=== PATIENT | female | born 1950 | race Caucasian/White ===

== ENCOUNTER 2019-09-13 19:42 | Emergency (ER) | payer MEDICARE, OTHER, SELFPAY ==
[2019-09-13 19:45] VITALS: BP 166/101; PULSE 112; RESP 20; TEMP 37.7; O2SAT 93; BMI 27.8
--- NOTE | 2019-09-13 19:52 | EKG12_ITS ---
Test Reason : DYSRHYTHMIA Blood Pressure : / mmHG Vent. Rate : 100 BPM Atrial Rate : 100 BPM P-R Int : 184 ms QRS Dur : 082 ms QT Int : 360 ms P-R-T Axes : 037 009 054 degrees QTc Int : 464 ms Normal sinus rhythm Normal ECG Confirmed by MONICA SERRANO, KENYATTA ([id number]), senior technical editor JOSE FIGUEROA ([id number]) on 09/16/2019 1:51:12 PM Referred By: FARIBA Confirmed By:JANELLE ANDERSON MD
--- NOTE | 2019-09-13 20:00 | ED.DCSUM_ITS ---
History of Present Illness Chief Complaint: Cough Detail of Chief Complaint: Respiratory symptoms with fever Informant: Patient, Significant Other Onset: Today Context: Sudden Onset Timing: Continuous Quality: Raspy cough, temperature 101.4 ?F, shortness of breath Location: Respiratory Current Severity: Mild Maximum Severity: Moderate Worsened by: Exertion Relieved by: Nothing Associated Symptoms: Denies nasal congestion or rhinorrhea positive sore throat Narrative: Patient is a 69-year-old woman who is a non-smoker that presented with respiratory symptoms that started this morning. She was at a [place] conference near [place] this past weekend. She was in contact with individuals who were ill. She denies headache. She denies ocular, visual auditory symptoms. She does complain of aching. She denies GI or symptoms. She states her right ankle is always swollen since surgery 5 months ago. She states she took 2 extra strength Tylenol 2.5 hours prior to presentation. She has no other complaints. Prior similar symptoms: No Recent Illness/Hospitalization: No - Past Medical History (1) Hypertension Status: Chronic Past Medical History - Allergies and Home Meds Allergies/Adverse Reactions: Allergies ibuprofen Adverse Reaction (Verified 09/13/19 19:44) Nausea naproxen [From Aleve] Adverse Reaction (Verified 09/13/19 19:44) Other SPIKED BY BLOOD PRESSURE Primary Care Physician: Pb Capone MD [Primary Care Provider] - Prior records reviewed: Yes Surgical History: noncontributory Lives: Spouse/ Significant Other Smoking Status: Never smoker Alcohol: None Drugs: None Review of Systems General: Reports: Chills, Fever, Malaise. Denies: Subjective, Sweats, Weight loss Eyes: Reports: - - She denies photophobia. Denies: Visual changes - bilaterally, Blurred Vision - bilaterally, Diplopia ENT: Reports: Sore throat, - - She denies neck pain or neck stiffness. Denies: Rhinorrhea Cardiovascular: Reports: Palpitations. Denies: Chest pain Respiratory: Reports: Dyspnea, Cough, Dyspnea on exertion. Denies: Sputum, Orthopnea, Paroxysmal nocturnal dyspnea Gastrointestinal: Denies: Abdominal pain, Nausea, Vomiting, Diarrhea, Melena, Hematochezia Genitourinary: Denies: Dysuria, Hematuria, Frequency Musculoskeletal: Reports: Myalgias. Denies: Arthralgias, Neck pain, Back pain, Swelling, Extremity Pain Skin: Denies: Rash, Wounds Neurological: Reports: Weakness. Denies: Headache, Parasthesia, Numbness, -, - Endocrine: Denies: Polyuria, Polydipsia Hematologic: Denies: Easy bruising, Easy bleeding Allergy: Denies: Uticaria Physical Exam Vital Signs/Narrative: Vital Signs Temp Pulse Resp BP Pulse Ox 09/13/19 19:45 99.9 F H 112 H 20 H 166/101 H 93 Inital Vital Signs reviewed: Yes Cardiovascular: Regular rhythm, No murmurs, Normal S1, Normal S2, Tachycardia Respiratory: Chest nontender, - - Adventitial breath sounds right lower lobe. Egophony left lower lobe.. Negative for: CTA bilaterally Abdomen: Soft, Nontender, Nondistended, Normal bowel sounds Back: Nontender, Normal Inspection Extremities: Nontender, No edema Skin: Normal color, No rash, No Trauma. Negative for: Cyanosis, Diaphoresis, Jaundice Neurological: Alert, Oriented x3, Cranial nerves II-XII grossly intact, Normal Strength, Normal Sensation Psychological: Normal affect, Normal Mood Diagnostic/Tx/Re-eval Chest X-Ray - ED: 2 View, Read by ED Physician, - - View chest x-ray interpreted by me at 2034 reveals normal cardiac silhouette and size. Mediastinum is unremarkable. Lung parenchyma is unremarkable. Osseous structures reveal no acute pathology. There is no evidence of effusion. 09/13/19 20:20 Chest PA and Lateral [RAD] Stat 09/13/19 20:12 Mucosa - Nasopharyngeal Influenza Types A,B Direct FA (ELIOT) - Final Laboratory Results 09/13/19 09/13/19 09/13/19 20:06 20:06 20:06 WBC 6.9 RBC 4.38 Hgb 12.7 Hct 38.7 MCV 88.4 MCH 29.0 MCHC 32.8 RDW Std Deviation 43.4 RDW Coeff of Denita 13.3 Plt Count 216 MPV 9.6 Immature Gran % (Auto) 0.300 Neut % (Auto) 84.5 H Lymph % (Auto) 6.1 L [place] % (Auto) 8.4 Eos % (Auto) 0.6 Baso % (Auto) 0.1 Absolute Neuts (auto) 5.8 Absolute Lymphs (auto) 0.42 L Nucleated RBC % 0 Differential Comment SEE COMMENT Platelet Estimate ADEQUATE RBC Morphology N CHROM Anisocytosis RARE PT 13.1 INR 1.0 APTT 31.4 Sodium 139 Potassium 3.9 Chloride 105 Carbon Dioxide 27.0 Anion Gap 7 BUN 12 Creatinine 0.73 Estim Creat Clear Calc 47.78 Est GFR (MDRD) Af Amer 102 Est GFR (MDRD) Non-Af 84 BUN/Creatinine Ratio 16.5 Glucose 131 H Lactic Acid Calcium 9.4 Total Bilirubin 0.40 AST 14 L ALT 27 Alkaline Phosphatase 107 Total Protein 7.3 Albumin 3.7 Globulin 3.6 Albumin/Globulin Ratio 1.0 09/13/19 20:06 WBC RBC Hgb Hct MCV MCH MCHC RDW Std Deviation RDW Coeff of Denita Plt Count MPV Immature Gran % (Auto) Neut % (Auto) Lymph % (Auto) [place] % (Auto) Eos % (Auto) Baso % (Auto) Absolute Neuts (auto) Absolute Lymphs (auto) Nucleated RBC % Differential Comment Platelet Estimate RBC Morphology Anisocytosis PT INR APTT Sodium Potassium Chloride Carbon Dioxide Anion Gap BUN Creatinine Estim Creat Clear Calc Est GFR (MDRD) Af Amer Est GFR (MDRD) Non-Af BUN/Creatinine Ratio Glucose Lactic Acid 1.1 Calcium Total Bilirubin AST ALT Alkaline Phosphatase Total Protein Albumin Globulin Albumin/Globulin Ratio - EKG Initial EKG Interpretation: Sinus Rhythm - Sinus rhythm with a ventricular rate of 100. DC interval 184 ms. QRS duration 82 ms. QT duration 360 ms. [place] is normal. The EKG is normal. The EKG was performed at 2015 - Medical Decision Making With recent travel to out-of-town conference with ill contacts need to evaluate for viral respiratory infection versus bacterial. Will obtain influenza screen. Because she is tachycardic, tachypneic and had documented fever at home sepsis order set was initiated. Per hospital guidelines since admission is not certain respiratory panel was not ordered with initial orders. Patient's work-up is unremarkable. Patient has viral-like symptoms. Treatment is symptomatic. Per hospital policy since she is not being admitted she will not be tested for COVID 19 ED Disposition - Plan for ED Patient: Disposition: Home or Assisted Living Diagnosis: Upper respiratory infection with cough and congestion, Sinus tachycardia seen on satellite project site monitor, Fever Instructions: URI, Viral, No Abx (Adult) Referrals: Pb Capone MD [Primary Care Provider] - 1 Week if not improving
[2019-09-13 20:16] VITALS: O2SAT 94
[2019-09-13 20:17] LABS: Absolute Lymphocyte Count 0.42 X10^3/uL (0.83-4.51); Absolute Neutrophil Count 5.8 X10^3/uL (2.0-7.7); Basophil# 0.01 X10^3/uL; Basophil% 0.1 % (0-1); Eosinophil# 0.04 X10^3/uL; Eosinophils% 0.6 % (0-5); Hematocrit 38.7 % (37-47); Hemoglobin 12.7 g/dL (12.0-15.0); Lymphocyte # 0.42 X10^3/ul (4.0); Lymphocyte % 6.1 % (19-41); Mean Corp Hgb Conc 32.8 g/dL (32-36); Mean Corpuscular Volume 88.4 fL (81-99); Mean Platelet Vol. 9.6 fl (6.2-12.0); Monocyte# 0.58 X10^3/uL; Monocyte% 8.4 % (0-10); NRBC Flagged by Analyzer 0 % (0-5); Neutrophil # 5.82 X10^3/uL (2.7-7.7); Neutrophil % 84.5 % (47-70); POSITIVE DIFFERENTIAL YES; Platelet Count 216 K/mm3 (150-450); RBC Distribution Width CV 13.3 % (11.6-14.6); RBC Distribution Width SD 43.4 fl (35.1-43.9); Red Blood Count 4.38 M/mm3 (4.2-5.4); White Blood Count 6.9 K/mm3 (4.4-11.0)
[2019-09-13 20:19] LABS: Differential Indicated SCAN CRITERIA MET
--- NOTE | 2019-09-13 20:20 | RAD_ITS ---
STUDY: X-RAY CHEST REASON FOR EXAM: Female, 69 years old. PT C/O FEVER, COUGH, AND HEADACHE WITH SYMPTOMS STARTING TODAY. TECHNIQUE: Frontal and lateral views of the chest. COMPARISON: None. FINDINGS: The lungs are clear and expanded. There is no demonstrated pleural abnormality. Normal size heart. Normal mediastinum and balbir. Normal visualized pulmonary arteries. Normal visualized aortic arch and descending thoracic aorta. Normal visualized thoracic spine. Normal visualized ribs, clavicles, and shoulders. There is no demonstrated abnormality of the visualized soft tissue structures of the upper abdomen. RAD/Chest PA and Lateral IMPRESSION: Normal x-ray examination of the chest. Electronically Signed: Man Damon MD at 21:27 EDT , Service support ,
[2019-09-13 20:26] LABS: Prothrombin Time (Protime)PT. 13.1 SECONDS (11.7-14.9)
[2019-09-13 20:27] LABS: Partial Thromboplast Time 31.4 Seconds (24.1-36.2)
[2019-09-13] MEDS: 0.9% Normal Saline 1,000 ML 999 ML IV (20:30)
[2019-09-13 20:36] LABS: AST(SGOT) 14 U/L (15-37); Alanine Aminotransfer ALT/SGPT 27 U/L (13-56); Albumin, Serum 3.7 g/dL (3.2-5.0); Alkaline Phosphatase 107 U/L (45-117); Anion Gap 7 (5-15); BUN 12 mg/dL (7-18); BUN/Creat Ratio 16.5 RATIO (10-20); Calcium,Total 9.4 mg/dL (8.5-10.1); Chloride 105 mmol/L (98-107); Creatinine, Serum 0.73 mg/dL (0.55-1.02); EST Glomerular Filtration Rate 84 mL/min (>60); Est Glom Filt Rate - Afr Amer 102 mL/min (>60); Estimated Creatinine Clearance 47.78 ml/min; Globulin 3.6 g/dL (2.2-4.2); Glucose 131 mg/dL (74-106); Potassium 3.9 mmol/L (3.5-5.1); Protein, Total 7.3 g/dL (6.4-8.2); Sodium Level 139 mmol/L (136-145)
[2019-09-13 20:39] VITALS: TEMP 37.8
[2019-09-13 20:40] VITALS: BP 153/82; PULSE 97; RESP 12; TEMP 37.8; O2SAT 94
[2019-09-13 20:42] LABS: Lactic Acid 1.1 mmol/L (0.4-1.9)
[2019-09-13 20:43] LABS: Anisocytosis RARE; Platelet Estimate ADEQUATE (ADEQ); Red Cell Morphology N CHROM NORMAL (NORM C&C)
[2019-09-13 21:22] VITALS: BP 151/80; PULSE 89; RESP 16; O2SAT 94
== END 2019-09-13 21:30 | disposition home or self-care (01) ==
PROVIDERS: Emergency Provider Emergency Medicine; PCP Family Medicine
DX: J06.9 Acute upper respiratory infection, unspecified (principal); R00.0 Tachycardia, unspecified; R50.9 Fever, unspecified; I10 Essential (primary) hypertension
CPT/HCPCS: 71046; 80053; 83605; 85025; 85610; 85730; 87040; 87804; 93005; 96360; 99284; J7030; A4216